=== PATIENT | male | born 1995 | race Caucasian/White ===

== ENCOUNTER 2018-05-07 10:19 | Emergency (ER) | payer OTHER ==
[~2018-05-07] VITALS: Ht 182.9 cm; Wt 90.9 kg
[2018-05-07 11:19] LABS: HEMATOCRIT 44.7 % (39.0-50.0); HEMOGLOBIN 14.4 g/dl (14.0-18.0); IMMATURE GRANULOCYTES 0.4 % (0.0-5.0); MEAN CELL VOLUME 89.6 fL CALC (80.0-100.0); MEAN CORPUSCULAR HGB 28.9 pG CALC (26.0-32.0); MEAN CORPUSCULAR HGB CONC 32.2 g/L CALC (32.0-36.0); NEUT# 7.14 thou/uL (1.82-7.42); RED BLOOD COUNT 4.99 mill/uL (4.70-6.10)
[2018-05-07 11:30] LABS: ALKALINE PHOSPHATASE 74 u/l (38-126); AMYLASE 84 u/l (30-110); ANION GAP 18 (6-22 (CALC)); BILIRUBIN, TOTAL 0.4 mg/dL (0.0-1.4); BUN 11 mg/dL (9-20); BUN/CREATININE RATIO 14 (12-20 (CALC)); CARBON DIOXIDE 26 mmol/l (22-30); CHLORIDE 101 mmol/l (95-108); CREATININE 0.8 mg/dL (0.7-1.3); GFR > 60 ML/MIN (>=60 (CALC)); GFR FOR AFR.AMER. > 60 ML/MIN (>=60 (CALC)); LIPASE 35 u/l (23-300); SGOT/AST 35 u/l (17-59); SODIUM 140 mmol/l (137-146); TOTAL PROTEIN 8.2 g/dL (6.3-8.2)
[2018-05-07 11:37] LABS: MYOGLOBIN 32 ng/mL (0 - 121)
[2018-05-07 12:43] LABS: URINE BILIRUBIN - DIPSTICK NEGATIVE (NEGATIVE); URINE BLOOD DIPSTICK NEGATIVE (NEGATIVE); URINE COLOR YELLOW; URINE GLUCOSE - DIPSTICK NEGATIVE (NEGATIVE); URINE KETONE NEGATIVE (NEGATIVE); URINE LEUK ESTERASE NEGATIVE (NEGATIVE); URINE NITRITE - DIPSTICK NEGATIVE (Negative); URINE PROTEIN - DIPSTICK NEGATIVE (NEG-TRACE); URINE UROBILINOGEN - DIPSTICK 0.2 E.U./dL (0.2)
[2018-05-07 12:53] LABS: BARBITURATES NEGATIVE (NEGATIVE); COCAINE NEGATIVE (NEGATIVE); METHADONE NEGATIVE (NEGATIVE); OXCYCODONE NEGATIVE (NEGATIVE); TETRAHYDROCANNABIONOL POSITIVE (NEGATIVE); TRICYLIC ANTIDEPRESSANTS NEGATIVE (NEGATIVE)
[2018-05-07] MEDS ORDERED: NAPROSYN500 MG PO (12:57)
[2018-05-07 13:12] VITALS: BP 137/68
== END 2018-05-07 13:17 | disposition home or self-care (01) ==
LOC: ED 10:19
PROVIDERS: Emergency Medicine
DX: M79.18 Myalgia, other site (principal); R10.32 Left lower quadrant pain